=== PATIENT | male | born 1945 | race Caucasian/White ===

== ENCOUNTER 2017-08-15 05:29 | Inpatient (IN) | payer OTHER ==
[2017-08-15] MEDS: LACTATED RINGER'S 1,000 ML IV* (06:15)
[2017-08-15] MEDS: ACETAMINOPHEN 1000MG/100ML IV 100 ML IVPB (06:15)
[2017-08-15] MEDS: LANSOPRAZOLE 30 MG CAP PO (06:16)
[2017-08-15] MEDS: DEXAMETHASONE 4 MG/ML 1 ML INJ IV (06:16)
[2017-08-15] MEDS: ONDANSETRON 4 MG INJ IV ×4 (06:17→22:30)
[2017-08-15] MEDS: oxyCODONE (CR) 10 MG TAB [oxyCONTIN] PO (06:19)
[2017-08-15] MEDS: TRANEXAMIC ACID 1,000 MG in NS 100 ML PRE-OP X1 IVPB (07:00)
[2017-08-15] MEDS: CEFAZOLIN 2 GM/50 ML (PMX) 50 ML IVPB (07:00)
[2017-08-15] MEDS: TRANEXAMIC ACID 1,000 MG in NS 100 ML INTRA-OP X1 IVPB (07:00)
[2017-08-15] MEDS ORDERED: morphine SULFATE/PF (10 MG/10 ML) INJ (07:24)
[2017-08-15] MEDS ORDERED: GLYCOPYRROLATE 0.4 MG INJ ×2 (07:24→09:18)
[2017-08-15] MEDS ORDERED: SUCCINYLCHOLINE CHLORIDE 100 MG/5 ML SYG IV (07:24)
[2017-08-15] MEDS ORDERED: NEOSTIGMINE 3 MG/3 ML SYRINGE ×2 (07:24→09:18)
[2017-08-15] MEDS ORDERED: ROPIVACAINE 0.5 % 30 ML VIAL (07:24)
[2017-08-15] MEDS ORDERED: LIDOCAINE 2% (SDV) 5 ML INJ (07:24)
[2017-08-15] MEDS ORDERED: PROPOFOL 20 ML (07:24)
[2017-08-15] MEDS ORDERED: ROCURONIUM 50 MG INJ (07:24)
[2017-08-15] MEDS ORDERED: CEFAZOLIN 1 GM INJ (07:25)
[2017-08-15] MEDS ORDERED: BUPIVACAINE 0.75%/DEXT (SPINAL) 2 ML INJ (08:00)
[2017-08-15] MEDS: KNEE PAIN COCKTAIL (CEFUROXIME) INJ (08:17)
[2017-08-15] MEDS: BACITRACIN 50000 UNITS INJ (08:26)
[2017-08-15] MEDS: POLYMYXIN B 500000 UNIT INJ (08:26)
[2017-08-15] MEDS ORDERED: EPHEDrine SULFATE 50 MG/5 ML SYG (08:46)
[2017-08-15] MEDS ORDERED: ONDANSETRON 4 MG INJ (09:18)
[2017-08-15] MEDS ORDERED: DIPHENHYDRAMINE 50 MG INJ IM (10:30)
[2017-08-15] MEDS ORDERED: MAGNESIUM HYDROXIDE 30ML CUP PO (10:30)
[2017-08-15] MEDS ORDERED: BISACODYL 10 MG SUPP PR (10:30)
[2017-08-15] MEDS ORDERED: BETHANECHOL 25 MG TAB PO (10:30)
[2017-08-15] MEDS ORDERED: SENNA/DOCUSATE NA (8.6MG/50MG) TAB PO (10:30)
[2017-08-15] MEDS ORDERED: NA PHOSPHATE/BIPHOS 133 ML ENEMA PR (10:30)
[2017-08-15] MEDS ORDERED: DOCUSATE SODIUM 100 MG CAP PO (10:39)
[2017-08-15] MEDS ORDERED: HYDROmorphONE 0.5 MG/0.5 ML SYG IV ×2 (11:00)
[2017-08-15] MEDS ORDERED: NALOXONE (0.4 MG/ML) INJ IV (11:00)
[2017-08-15] MEDS ORDERED: ONDANSETRON 4 MG INJ IV (11:00)
[2017-08-15] MEDS: ASPIRIN (EC) 325 MG TAB PO ×2 (11:01→21:03)
[2017-08-15] MEDS: CEFAZOLIN 1 GM/50 ML (PMX) 50 ML IVPB ×2 (11:01→17:48)
[2017-08-15] MEDS: DOCUSATE SODIUM 100 MG CAP PO (11:01)
[2017-08-15] MEDS: SOD CHLORIDE 0.9% 1,000 ML IV ×2 (11:22→21:18)
[2017-08-15] MEDS: DIPHENHYDRAMINE 50 MG INJ IV (11:38)
[2017-08-15] MEDS ORDERED: GLUCAGON 1 MG INJ IM (12:30)
[2017-08-15] MEDS ORDERED: GLUCOSE GEL 15 GRAM TUBE PO ×2 (12:30)
[2017-08-15] MEDS ORDERED: DEXTROSE 50% 50 ML SYRINGE IV ×2 (12:30)
[2017-08-15] MEDS ORDERED: GLUCOSE GEL 15 GRAM TUBE BUCCAL (12:30)
[2017-08-15] MEDS: INSULIN ASPART [NOVOLOG] 3 ML PEN SC ×2 (17:55→21:12)
[2017-08-15] MEDS ORDERED: CELECOXIB 100 MG CAP PO (21:00)
[2017-08-15] MEDS: GABAPENTIN 100 MG CAP PO (21:03)
[2017-08-15] MEDS: ATORVASTATIN 40 MG TAB PO (21:03)
[2017-08-16] MEDS: CEPASTAT LOZENGE MT (00:43)
[2017-08-16] MEDS: ACCU-CHEK XX (02:00)
[2017-08-16] MEDS: ONDANSETRON 4 MG INJ IV (04:30)
[2017-08-16 05:01] LABS: ADD MAN DIFF? NO
[2017-08-16 05:07] LABS: BASOPHILS % 0.2 % (0.0-2.0); HEMATOCRIT 27.8 % (42.0-52.0); HEMOGLOBIN 9.3 g/dl (14.0-18.0); LYMPHOCYTES # 1.9 10^3/ul (0.8-2.9); LYMPHOCYTES % 16.2 % (15.0-51.0); MEAN CORPUSCULAR HEMOGLOBIN 25.3 pg (29.0-33.0); MEAN CORPUSCULAR HGB CONC 33.5 g/dl (32.0-37.0); MEAN CORPUSCULAR VOLUME 75.7 fl (82.0-101.0); MEAN PLATELET VOLUME 10.2 fl (7.4-10.4); MONOCYTE # 0.9 10^3/ul (0.3-0.9); MONOCYTES % 7.6 % (0.0-11.0); NEUTROPHIL # 8.9 10^3/ul (1.6-7.5); NEUTROPHILS % 75.7 % (39.0-77.0); PLATELET COUNT 232 10^3/UL (140-415); RED BLOOD COUNT 3.67 10^6/ul (4.70-6.10); RED CELL DISTRIBUTION WIDTH 15.2 % (11.5-14.5)
[2017-08-16 05:07] LABS: WHITE BLOOD COUNT 11.8 10^3/ul (4.8-10.8)
[2017-08-16 05:18] LABS: HEMOGLOBIN A1C 7.3 % (0-5.9); MAGNESIUM 1.5 mg/dl (1.7-2.5)
[2017-08-16 05:18] LABS: CHOL/HDL RATIO 3.4 RATIO; CHOLESTEROL 94 mg/dl (100-200); HDL CHOLESTEROL 27 mg/dl (31-75); LDL CHOLESTEROL,CALCULATED 42 mg/dl; TRIGLYCERIDES 127 mg/dl (0-149)
[2017-08-16 05:21] LABS: ANION GAP 15 (8-16); BLOOD UREA NITROGEN 16 mg/dl (7-20); CALCIUM 8.1 mg/dl (8.4-10.2); CARBON DIOXIDE 27 mmol/L (21-31); CHLORIDE 103 mmol/L (97-110); GLUCOSE 115 mg/dl (70-220); POTASSIUM 4.3 mmol/L (3.5-5.1); SODIUM 141 mmol/L (135-144)
[2017-08-16] MEDS: PANTOPRAZOLE (EC) 40 MG TAB PO (06:19)
[2017-08-16] MEDS: CEFAZOLIN 1 GM/50 ML (PMX) 50 ML IVPB (06:19)
[2017-08-16 06:42] LABS: THYROID STIMULATING HORMONE 0.246 MIU/L (0.465-4.680)
[2017-08-16] MEDS ORDERED: KETOROLAC 15 MG INJ IV (07:40)
[2017-08-16] MEDS ORDERED: NALOXONE (0.4 MG/ML) INJ IV (07:40)
[2017-08-16] MEDS ORDERED: oxyCODONE 5 MG TAB PO ×3 (07:40)
[2017-08-16] MEDS: INSULIN ASPART [NOVOLOG] 3 ML PEN SC ×2 (07:50→11:40)
[2017-08-16] MEDS: DOCUSATE SODIUM 100 MG CAP PO (08:43)
[2017-08-16] MEDS: FERROUS FUMARATE (SR) TAB PO (08:43)
[2017-08-16] MEDS: CELECOXIB 200 MG CAP PO (08:44)
[2017-08-16] MEDS: LOSARTAN 50 MG TAB PO (08:44)
[2017-08-16] MEDS: GABAPENTIN 100 MG CAP PO (08:44)
[2017-08-16] MEDS: ASPIRIN (EC) 325 MG TAB PO (08:44)
[2017-08-16] MEDS: ISOSORBIDE MONONITRATE(SR)30 MG TAB PO (08:44)
[2017-08-16] MEDS: GABAPENTIN 300 MG CAP PO (08:45)
[2017-08-16] MEDS: INSULIN GLARGINE [LANtus] 3 ML PEN SC (08:52)
[2017-08-16] MEDS ORDERED: ASPIRIN 325 MG TAB PO (09:00)
[2017-08-16] MEDS ORDERED: NON-FORMULARY/PATIENT OWN MED (Esomeprazole Mag Trihydrate (Nexium) 20 MG) PO (09:00)
[2017-08-16] MEDS: SOD CHLORIDE 0.9% 1,000 ML IV (11:06)
[2017-08-16] MEDS: DIPHENHYDRAMINE 50 MG INJ IV (11:20)
[2017-08-17] MEDS ORDERED: PANTOPRAZOLE (EC) 40 MG TAB PO (06:00)
== END 2017-08-16 16:28 | disposition home health service (06) | DRG 470 ==
LOC: REC 05:29 → MS1 11:43
PROVIDERS: Orthopaedic Surgery Adult Reconstructive Orthopaedic Surgery
PROC: 0SRD0JA Replacement of Left Knee Joint with Synthetic Substitute, Uncemented, Open Approach (ICD-10-PCS; principal; 2017-08-15 07:30)
DX: M17.12 Unilateral primary osteoarthritis, left knee (principal); Z95.1 Presence of aortocoronary bypass graft; E78.5 Hyperlipidemia, unspecified; I10 Essential (primary) hypertension; E11.9 Type 2 diabetes mellitus without complications; G62.9 Polyneuropathy, unspecified; D50.9 Iron deficiency anemia, unspecified
CPT/HCPCS: 73560; 80048; 80061; 82962; 83036; 83735; 84443; 85025; 87081; 87086; 88304; 88311; 97110; 97116; 97161; 97165; 97530

== ENCOUNTER 2017-08-24 16:28 | Observation (INO) | payer OTHER ==
[2017-08-24] MEDS ORDERED: ACETAMINOPHEN 325 MG TAB PO (17:30)
[2017-08-24] MEDS ORDERED: ONDANSETRON 4 MG INJ IV (17:30)
[2017-08-24 17:37] LABS: ADD MAN DIFF? NO
[2017-08-24 17:51] LABS: WHITE BLOOD COUNT 8.4 10^3/ul (4.8-10.8)
[2017-08-24 17:51] LABS: BASOPHIL # 0.1 10^3/ul (0.0-0.1); BASOPHILS % 0.7 % (0.0-2.0); EOSINOPHILS # 0.2 10^3/ul (0.0-0.5); EOSINOPHILS % 2.5 % (0.0-7.0); HEMATOCRIT 27.2 % (42.0-52.0); LYMPHOCYTES # 2.1 10^3/ul (0.8-2.9); LYMPHOCYTES % 25.1 % (15.0-51.0); MEAN CORPUSCULAR HEMOGLOBIN 25.2 pg (29.0-33.0); MEAN CORPUSCULAR HGB CONC 33.1 g/dl (32.0-37.0); MEAN CORPUSCULAR VOLUME 76.2 fl (82.0-101.0); MEAN PLATELET VOLUME 9.9 fl (7.4-10.4); MONOCYTE # 1.2 10^3/ul (0.3-0.9); MONOCYTES % 14.3 % (0.0-11.0); NEUTROPHIL # 4.8 10^3/ul (1.6-7.5); NEUTROPHILS % 56.7 % (39.0-77.0); PLATELET COUNT 452 10^3/UL (140-415); RED BLOOD COUNT 3.57 10^6/ul (4.70-6.10); RED CELL DISTRIBUTION WIDTH 14.8 % (11.5-14.5)
[2017-08-24] MEDS: ONDANSETRON 4 MG INJ IV (17:51)
[2017-08-24] MEDS: morphine 4 MG/ML VIAL IV (17:51)
[2017-08-24 17:54] LABS: INR 1.09; PARTIAL THROMBOPLASTIN TIME 36.5 Sec (25.0-35.0); PROTIME 14.2 Sec (11.9-14.9); PT RATIO 1.1
[2017-08-24 18:02] LABS: ALANINE AMINOTRANSFERASE 24 IU/L (13-69); ALBUMIN/GLOBULIN RATIO 1.05; ALKALINE PHOSPHATASE 93 IU/L (42-121); ANION GAP 18 (8-16); ASPARTATE AMINO TRANSFERASE 28 IU/L (15-46); BILIRUBIN,INDIRECT 0.4 mg/dl (0-1.1); BILIRUBIN,TOTAL 0.4 mg/dl (0.2-1.3); BLOOD UREA NITROGEN 15 mg/dl (7-20); C-REACTIVE PROTEIN 5.3 mg/dl (0.0-0.9); CALCIUM 8.7 mg/dl (8.4-10.2); CARBON DIOXIDE 23 mmol/L (21-31); CHLORIDE 104 mmol/L (97-110); CREATININE 0.93 mg/dl (0.61-1.24); GLUCOSE 80 mg/dl (70-220); POTASSIUM 4.5 mmol/L (3.5-5.1); SODIUM 140 mmol/L (135-144); TOTAL PROTEIN 7.8 g/dl (6.1-8.1)
[2017-08-24 18:15] LABS: TROPONIN-I < 0.012 ng/ml (0.00-0.12)
[2017-08-24 19:08] LABS: ERYTHROCYTE SEDIMENTATION RATE 92 mm/Hr (0-20)
[2017-08-24 19:36] LABS: LACTIC ACID 0.7 mmol/L (0.5-2.0)
[2017-08-24] MEDS ORDERED: GLUCOSE GEL 15 GRAM TUBE BUCCAL (20:30)
[2017-08-24] MEDS ORDERED: NITROGLYCERIN (SL) 0.4 MG TAB SL (20:30)
[2017-08-24] MEDS ORDERED: DEXTROSE 50% 50 ML SYRINGE IV ×2 (20:30)
[2017-08-24] MEDS ORDERED: GLUCOSE GEL 15 GRAM TUBE PO ×2 (20:30)
[2017-08-24] MEDS ORDERED: GLUCAGON 1 MG INJ IM (20:30)
[2017-08-24] MEDS: FERROUS SULFATE (EC) 325 MG TAB PO (21:33)
[2017-08-24] MEDS: HYDROCODONE/APAP (5/325) TAB PO (21:33)
[2017-08-24] MEDS: ATORVASTATIN 40 MG TAB PO (21:33)
[2017-08-24 22:20] LABS: LACTIC ACID 0.8 mmol/L (0.5-2.0)
[2017-08-25] MEDS ORDERED: PENDING SANTYL ORDER FOR WOUND CARE XX (01:30)
[2017-08-25] MEDS: PANTOPRAZOLE (EC) 40 MG TAB PO (06:19)
[2017-08-25] MEDS: HYDROCODONE/APAP (5/325) TAB PO ×2 (06:19→14:36)
[2017-08-25] MEDS: GABAPENTIN 300 MG CAP PO (08:55)
[2017-08-25] MEDS: FERROUS SULFATE (EC) 325 MG TAB PO (08:55)
[2017-08-25] MEDS: metFORMIN 500 MG TAB PO (08:55)
[2017-08-25] MEDS: LOSARTAN 50 MG TAB PO (08:56)
[2017-08-25] MEDS: ISOSORBIDE MONONITRATE(SR)30 MG TAB PO (08:56)
[2017-08-25] MEDS: LISINOPRIL 20 MG TAB PO (08:57)
[2017-08-25] MEDS: PRASUGREL HYDROCHLORIDE 10 MG TABLET PO (10:27)
== END 2017-08-25 15:55 | disposition home or self-care (01) ==
LOC: FTE 16:28 → MS1 17:07
DX: M25.462 Effusion, left knee (principal); I25.10 Atherosclerotic heart disease of native coronary artery without angina pectoris; Z95.1 Presence of aortocoronary bypass graft; E11.9 Type 2 diabetes mellitus without complications; Z79.84 Long term (current) use of oral hypoglycemic drugs; Z79.82 Long term (current) use of aspirin
CPT/HCPCS: 36415; 71045; 80053; 83605; 84484; 85025; 85610; 85651; 85730; 86140; 86850; 86900; 86901; 87040; 87081; 93005; 93971; 96374; 96375; 99217; 99285-25